=== PATIENT | female | born 1960 | race Caucasian/White ===

== ENCOUNTER 2019-03-07 15:25 | Inpatient (IN) | payer SELFPAY ==
[2019-03-07] MEDS ORDERED: 0.9 % SODIUM CHLORIDE 1,000 ML BAG IV ONE ×2 (15:53→15:54)
[2019-03-07] MEDS ORDERED: ACETAMINOPHEN 325 MG TAB PO ONE (15:55)
--- NOTE | 2019-03-07 15:56 | Emergency Department Record ---
History of Present Illness - General Chief Complaint: Fever Stated Complaint: DIZZY AND FEVER Time Seen by Provider: 03/07/19 15:40 Source: Patient, Family Mode of Arrival: Wheelchair Limitations: No limitations - History of Present Illness Initial Comments: The patient is here due to not feeling well for over 2 weeks. She has had intermittent fevers, weakness, a bad cough, and nausea with mild diarrhea. Over the last 2 days the patient seems to be getting worse with a mild WILLSON and trouble remembering things. The patient denies any AP, dysuria, back or neck pain. She does have a long hx of Hep C but no liver failure. MD Complaint: Fever, Malaise, Weakness Onset/Timin -: Days(s) Maximum Temperature: 102 F Temperature Source: Oral Treatments Prior to Arrival: "Cold medicine" - Related Data Home Medications Medication Instructions Recorded Confirmed Last Taken Naproxen [Naprosyn] 500 mg PO Q8HR 03/07/19 03/07/19 03/07/19 Allergies Allergy/AdvReac Type Severity Reaction Status Date / Time No Known Drug Allergies Allergy Verified 03/07/19 15:31 Travel Screening - Travel/Exposure Within Last 30 Days Have you traveled within the last 30 days?: No - Travel/Exposure Within Last Year Have you traveled outside the [place] in the last year?: No - Additonal Travel Details Have you been exposed to anyone with a communicable illness?: No - Travel Symptoms Symptom Screening: None Review of Systems Constitutional: Reports: Chills, Fever, Malaise Eyes: Denies: Eye discharge ENT: Reports: Congestion Respiratory: Reports: Cough. Denies: Dyspnea Cardiovascular: Denies: Arrhythmia, Chest pain Endocrine: Reports: Fatigue Gastrointestinal: Reports: Diarrhea, Nausea. Denies: Vomiting Genitourinary: Denies: Dysuria Musculoskeletal: Denies: Arthralgia Skin: Denies: Bruising Past Medical History - SOCIAL HISTORY Smoking Status: Light tobacco smoker (<10/day) Alcohol Use: None Drug Use: None - RESPIRATORY Hx Respiratory Disorders: No - CARDIOVASCULAR Hx Cardio Disorders: No - NEURO Hx Neuro Disorders: No - GI Hx GI Disorders: Yes Hx Liver Disease: Yes (Hep c) - Hx Genitourinary Disorders: No - ENDOCRINE Hx Endocrine Disorders: No - MUSCULOSKELETAL Hx Musculoskeletal Disorders: No - PSYCH Hx Psych Problems: No - HEMATOLOGY/ONCOLOGY Hx Hematology/Oncology Disorders: No Family Medical History Any Significant Family History?: No Physical Exam - General General Appearance: Alert, Cooperative, No acute distress - Head Head exam: Atraumatic, Normocephalic, Normal inspection - Eye Eye exam: Normal appearance, PERRL. negative: Conjunctival injection - ENT Throat exam: Normal inspection. negative: Tonsillar erythema, Tonsillar exudate - Neck Neck exam: Normal inspection, Full ROM. negative: Meningismus (The neck is very supple.), Tenderness - Respiratory Respiratory exam: Normal lung sounds bilaterally. negative: Accessory muscle use, Chest wall tenderness, Rales, Respiratory distress, Rhonchi, Stridor - Cardiovascular Cardiovascular Exam: Regular rate, Normal rhythm, Normal heart sounds - GI/Abdominal GI/Abdominal exam: Soft, Normal bowel sounds. negative: Tenderness - Extremities Extremities exam: Normal inspection, Full ROM, Normal capillary refill. negative: Tenderness - Neurological Neurological exam: Alert, Normal gait. negative: Abnormal gait, Altered, Motor sensory deficit, Oriented X3 (The patient is oriented to name, age, and day of the week but thinks it is 2014.) Course Vital Signs 03/07/19 15:34 Temperature 101 F H Pulse Rate 130 H Respiratory 20 Rate Blood Pressure 168/97 Pulse Ox 94 L - Reevaluation(s) Reevaluation #1: The patient is doing a lot better after the IVF and Tylenol. Her temp is improved and her BP is stable with a much lower HR. I did discuss the xrays with the patient and family and did discuss the fact that I feel she will need inpatient treatment and they did agree. I then did discuss the case with Ceci (EMPLOYEE WELFARE MANAGER) and she does agree to accept the admission for Dr. Fried. 03/07/19 17:06 Medical Decision Making - Data Complexity MDM Data: Labs Ordered and/or Reviewed, X-Ray Ordered and/or Reviewed - Lab Data Result diagrams: 03/08/19 06:00 03/08/19 06:00 - Radiology Data Radiology results: Report reviewed (CXR: EMILIE infiltrate. Head CT: Neg for any acute changes.) Disposition Disposition: Admit Clinical Impression: Pneumonia Qualifiers: Pneumonia type: due to unspecified organism Laterality: left Lung location: upper lobe of lung Qualified Code(s): J18.1 - Lobar pneumonia, unspecified organism Disposition: Still a Patient at [facility] Decision to Admit: Admit from ER Decision to Admit Date: 03/07/19 Decision to Admit Time: 17:35 Accepting Physician: Corky Time Discussed w/Accepting Physician: 17:35 Condition: (2) Stable Time of Disposition: 17:35 Quality - Quality Measures Quality Measures: N/A - Blood Pressure Screening View Details: Yes Does Patient Have Any of the Following: No Blood Pressure Classification: Hypertensive Reading Systolic Measurement: 168 Diastolic Measurement: 97 Screening for High Blood Pressure: < First Hypertensive BP, F/U Documented > [[id number]] First Hypertensive Follow-up Interventions: Referral to alternative/primary care provider.
[2019-03-07 16:03] LABS: BASO % 0.1 % (0-6); HEMATOCRIT 42.3 % (35.0-47.0); HEMOGLOBIN 14.5 gm/dl (11.6-16.0); LYMPH % 9.6 % (16-45); MEAN CELL VOLUME 96.4 fl (81-97); MEAN CORPUSCULAR HGB CONC 34.3 g/dl (32-36); MEAN PLATELET VOLUME 12.6 fl (7.4-10.4); MONO % 4.9 % (0-9); PLATELET COUNT 99 K/uL (130-400); RED BLOOD COUNT 4.39 M/uL (3.80-5.40); RED CELL DISTRIBUTION WIDTH 12.3 % (11.5-14.5); WHITE BLOOD COUNT W/O DIFF 8.1 K/uL (4.2-12.2)
[2019-03-07 16:18] LABS: URINE APPEARANCE CLEAR; URINE BILIRUBIN MODERATE (NEGATIVE); URINE BLOOD MODERATE (NEGATIVE); URINE COLOR YELLOW; URINE GLUCOSE (UA) NEGATIVE (NEGATIVE); URINE KETONE NEGATIVE (NEGATIVE); URINE LEUKOCYTE ESTERASE TRACE (NEGATIVE); URINE NITRITE NEGATIVE (NEGATIVE)
[2019-03-07 16:24] LABS: INR 1.1; PARTIAL THROMBOPLASTIN TIME 30.5 SECONDS (24.5-39.1); PROTHROMBIN TIME (PATIENT) 11.3 SECONDS (9.5-12.1)
[2019-03-07 16:32] LABS: BLOOD UREA NITROGEN 33 mg/dL (8-23); CREATININE 0.8 mg/dL (0.5-0.9); EST GLOMERULAR FILTRATION RATE > 60 mL/min; TOTAL PROTEIN 7.7 g/dL (6.6-8.7)
[2019-03-07 16:32] LABS: URINE BACTERIA 3+; URINE RBC 0 - 2 (NONE SEEN)
[2019-03-07 16:34] LABS: GLUCOSE,RANDOM 189 mg/dL (74-109)
[2019-03-07] MEDS ORDERED: CEFTRIAXONE 1GM/50ML BAG 1 GM/50 ML BAG IVPB ONE (16:34)
[2019-03-07 16:37] LABS: ALBUMIN 3.2 g/dL (4.0-5.0); ALKALINE PHOSPHATASE 84 U/L (35-104); ALT/SGPT 34 U/L (<33); AST/SGOT 70 U/L (10.0-35.0); BILIRUBIN,DIRECT 0.9 mg/dL (0-0.3); C-REACTIVE PROTEIN 27.72 mg/dL (<0.5)
[2019-03-07 16:40] LABS: PLATELET ESTIMATE DECREASED (NORMAL)
[2019-03-07] MEDS ORDERED: AZITHROMYCIN 500 MG in 0.9 % SODIUM CHLORIDE 250ML 250 ML IVPB ONE (16:58)
[2019-03-07] MEDS ORDERED: ACETAMINOPHEN 325 MG TAB PO PRN (19:56)
[2019-03-07] MEDS: CEFTRIAXONE SODIUM 1 GM in 0.9 % SODIUM CHLORIDE 100ML 100 ML IVPB SCH (20:00)
[2019-03-07] MEDS: 0.9 % SODIUM CHLORIDE 1000ML 1,000 ML IV ONE (20:24)
[2019-03-07] MEDS: NAPROXEN 250 MG TABLET PO SCH (20:56)
[2019-03-07] MEDS: IPRATROPIUM/ALBUTEROL (0.5MG/3MG) NEB INH SCH (20:59)
[2019-03-08] MEDS: IPRATROPIUM/ALBUTEROL (0.5MG/3MG) NEB INH SCH ×3 (01:32→10:07)
[2019-03-08] MEDS: NAPROXEN 250 MG TABLET PO SCH ×2 (04:42→12:02)
[2019-03-08] MEDS: 0.9 % SODIUM CHLORIDE 1000ML 1,000 ML IV ONE (04:44)
[2019-03-08 06:12] LABS: ABSOLUTE NEUTROPHIL COUNT 3.45; BASO % 0.2 % (0-6); HEMATOCRIT 35.7 % (35.0-47.0); HEMOGLOBIN 12.1 gm/dl (11.6-16.0); LYMPH % 8.6 % (16-45); MEAN CELL VOLUME 98.1 fl (81-97); MEAN CORPUSCULAR HEMOGLOBIN 33.2 pg (27-33); MEAN CORPUSCULAR HGB CONC 33.9 g/dl (32-36); MEAN PLATELET VOLUME 12.3 fl (7.4-10.4); MONO % 5.9 % (0-9); PLATELET COUNT 73 K/uL (130-400); RED BLOOD COUNT 3.64 M/uL (3.80-5.40); RED CELL DISTRIBUTION WIDTH 12.6 % (11.5-14.5); WHITE BLOOD COUNT W/O DIFF 4.1 K/uL (4.2-12.2)
[2019-03-08 06:41] LABS: PLATELET ESTIMATE DECREASED (NORMAL)
[2019-03-08 06:55] LABS: ALB/GLOB RATIO 0.6 (1.1-1.8); ALBUMIN 2.4 g/dL (4.0-5.0); ALKALINE PHOSPHATASE 56 U/L (35-104); ALT/SGPT 35 U/L (<33); AST/SGOT 77 U/L (10.0-35.0); BLOOD UREA NITROGEN 34 mg/dL (8-23); CREATININE 0.6 mg/dL (0.5-0.9); EST GLOMERULAR FILTRATION RATE > 60 mL/min; GLUCOSE,RANDOM 173 mg/dL (74-109); TOTAL PROTEIN 6.1 g/dL (6.6-8.7)
[2019-03-08] MEDS: CEFTRIAXONE SODIUM 1 GM in 0.9 % SODIUM CHLORIDE 100ML 100 ML IVPB SCH ×2 (07:48→20:53)
[2019-03-08] MEDS: POTASSIUM CHLORIDE 20 MEQ TABLET PO SCH ×2 (10:15→22:26)
[2019-03-08] MEDS: CALCIUM CARBONATE 500 MG TAB.CHEW PO SCH ×2 (10:15→22:26)
[2019-03-08] MEDS ORDERED: MAGNESIUM SULFATE 16 MEQ in 0.9 % SODIUM CHLORIDE 100ML 100 ML IV ONE (11:14)
[2019-03-08] MEDS ORDERED: METOPROLOL TART 5 MG/5 ML VIAL IV ONE (11:37)
[2019-03-08] MEDS ORDERED: METOPROLOL TART 5 MG/5 ML VIAL IV PRN (12:02)
[2019-03-08] MEDS: METOPROLOL TART 25 MG TABLET PO SCH ×2 (12:06→22:27)
--- NOTE | 2019-03-08 12:20 | History & Physical ---
History of Present Illness - Date of Service Date of Service for History & Physical: 03/08/19 - History of Present Illness Admitting Diagnosis: 1. Acute EMILIE Pneumonia. History of Present Illness: Aleksandra Brantley is a 58 y.o. F who presented to the [facility] ED on 03/07/19 with c/o fevers, weakness, cough, nausea and mild diarrhea x 2 weeks that had worsened over last 2 days. Had also developed a mild headache and some confusion. Denied having back or neck pain or any urinary symptoms. Reported that she last saw her PCP in April 2018. Has hx of Hep C for which she was diagnosed in 1998. Stated that she got it from a blood transfusion during a in 1974. Did undergo treatment x 1 year back in 1998. Doesn't have a GI doctor as she moved to the area from [place] to live with her son fairly recently. Does not have any health insurance at this time. Doesn't know if she qualifies for Medicaid or not because she has a home, that is for sale, so was told she probably wouldn't qualify because of this asset. PMHx: Hep C, HTN, smoker PCP: Dr. Verma ED Course -Vitals: T 101, HR 130, BP 168/97, RR 20, SpO2 94% on RA -CXR: EMILIE Infiltrate -Head CT: No acute changes -Labs: WBC 8.1, platelets 99, Na 126, K+ 3.6, AG 18, Creat 0.8, Lactic 3.0, Ca 8.7, CRP 27, procalcitonin 1.6 -U/A: Trace Leuks, no Nitrites 03/08/19 1140 Vitals: T 97.6, HR 63, BP 99/59, RR 18, SpO2 99% on RA Pt was sitting up in bed in mild distress. Was c/o Chest pressure and some PRASAD. HR 150s to 170s on Telemetry. Had a Duoneb approximately 1 hour prior and had then gotten up to use the restroom when HR elevated and chest pressure started. Reported extreme coughing when up to the bathroom, after the Duoneb and then chest pressure started. Pt was administered IV Metoprolol 2.5mg x 2 doses and then given Metoprolol 25mg PO. 20 minutes later, EKG was ordered when HR did not decrease. When EKG machine was brought into room, pt converted to a NSR with HR in 80s. EKG = NSR. Outside of this episode, pt denied having any pain or fever however she has been receiving Naproxen ATC. RN did report that pt was diaphoretic this a.m. Travel Screening - Travel/Exposure Within Last 30 Days Have you traveled within the last 30 days?: No - Travel/Exposure Within Last Year Have you traveled outside the [place] in the last year?: No - Additonal Travel Details Have you been exposed to anyone with a communicable illness?: No - Travel Symptoms Symptom Screening: None Review of Systems Reviewed: No additional complaints except as noted below Constitutional: Reports: Chills, Malaise, Weakness Eyes: Denies: Eye discharge ENT: Reports: Congestion Respiratory: Reports: Cough. Denies: Dyspnea Cardiovascular: Reports: Chest pain (pressure ). Denies: Arrhythmia Endocrine: Reports: Fatigue Gastrointestinal: Reports: Diarrhea. Denies: Vomiting Genitourinary: Denies: Dysuria Musculoskeletal: Denies: Arthralgia Skin: Denies: Bruising Neurological: Denies: Confusion Past Medical History - SOCIAL HISTORY Smoking Status: Light tobacco smoker (<10/day) Alcohol Use: None Drug Use: None - RESPIRATORY Hx Respiratory Disorders: No - CARDIOVASCULAR Hx Cardio Disorders: No - NEURO Hx Neuro Disorders: No - GI Hx GI Disorders: Yes Hx Liver Disease: Yes (Hep c) - Hx Genitourinary Disorders: No - ENDOCRINE Hx Endocrine Disorders: No - MUSCULOSKELETAL Hx Musculoskeletal Disorders: No - PSYCH Hx Psych Problems: No - HEMATOLOGY/ONCOLOGY Hx Hematology/Oncology Disorders: No Family Medical History Any Significant Family History?: No H&P Meds/Allergies - Allergies Allergies: Allergies Allergy/AdvReac Type Severity Reaction Status Date / Time No Known Drug Allergies Allergy Verified 03/07/19 15:31 - Home Medications Home Medications Medication Instructions Recorded Confirmed Last Taken Naproxen [Naprosyn] 500 mg PO Q8HR 03/07/19 03/07/19 03/07/19 Lisinopril/Hydrochlorothiazide 1 tab PO DAILY 03/08/19 03/08/19 Unknown [Lisinopril-Hctz 10-12.5 mg Tab] Metoprolol Succinate [Toprol Xl] 1 tab PO DAILY 03/08/19 03/08/19 Unknown Metoprolol/Hydrochlorothiazide 03/08/19 Unknown [Metoprolol-Hctz 100-50 mg Tab] - Active Medications Active Medications: Current Medications Calcium Carbonate/Glycine (Tums) 500 mg PO BID [facility] Last Admin: 03/08/19 10:15 Dose: 500 mg Documented by: Ceftriaxone Sodium 1 gm/ (Sodium Chloride) 100 mls @ 100 mls/hr IVPB Q12H [facility] Stop: 03/12/19 19:57 Last Infusion: 03/08/19 08:49 Dose: Infused Documented by: Azithromycin 500 mg/ Sodium (Chloride) 250 mls @ 250 mls/hr IVPB Q24H [facility] Stop: 03/13/19 17:46 Metoprolol Tartrate (Lopressor) 25 mg PO BID [facility] Last Admin: 03/08/19 12:06 Dose: 25 mg Documented by: Metoprolol Tartrate (Lopressor) 2.5 mg IV Q5MIN PRN PRN Reason: Heart Rate greater than 150 Naproxen (Naprosyn) 500 mg PO Q12H PRN PRN Reason: PAIN - MILD(1-4)/FEVER Potassium Chloride (Klor-Con) 40 meq PO BID [facility] Last Admin: 03/08/19 10:15 Dose: 40 meq Documented by: Physical Exam - Vital Signs Vital Signs: Vital Signs - Last 24 Hrs Temp Pulse Pulse Resp BP BP Pulse Ox 03/08/19 11:41 97.9 F 76 20 109/79 96 03/08/19 10:08 63 18 99 03/08/19 08:00 97.6 F 81 17 99/59 96 03/08/19 06:07 75 20 95 03/08/19 02:20 97.4 F L 77 16 117/65 99 03/07/19 21:30 98.3 F 03/07/19 21:00 112 H 20 03/07/19 20:59 112 H 20 03/07/19 19:55 98.7 F 111 H 18 132/77 97 03/07/19 19:19 98.3 F 99 H 20 122/76 97 03/07/19 18:33 98.5 F 97 H 18 109/68 97 03/07/19 17:04 99.2 F 103 H 20 123/77 96 03/07/19 15:34 101 F H 130 H 20 168/97 94 L - General General Appearance: Alert, Oriented x3, Cooperative, Mild distress Limitations: No limitations - Head Head exam: Atraumatic, Normocephalic, Normal inspection - Eye Eye exam: Normal appearance, PERRL. negative: Conjunctival injection - ENT Throat exam: Normal inspection. negative: Tonsillar erythema, Tonsillar exudate - Neck Neck exam: Normal inspection, Full ROM. negative: Meningismus (The neck is very supple.), Tenderness - Respiratory Respiratory exam: Normal lung sounds bilaterally. negative: Accessory muscle use, Chest wall tenderness, Rales, Respiratory distress, Rhonchi, Stridor - Cardiovascular Cardiovascular Exam: Tachycardia - GI/Abdominal GI/Abdominal exam: Soft, Normal bowel sounds. negative: Tenderness - Extremities Extremities exam: Normal inspection, Full ROM, Normal capillary refill. negative: Pedal edema, Tenderness - Neurological Neurological exam: Alert, CN II-XII intact. negative: Abnormal gait, Altered, Motor sensory deficit - Psychiatric Psychiatric exam: Normal mood - Skin Skin exam: Dry, Intact Results - Labs Result Diagrams: 03/08/19 06:00 03/08/19 06:00 Labs Last 24 Hours: Laboratory Results - last 24 hr 03/07/19 03/07/19 03/07/19 15:45 15:45 15:45 WBC 8.1 RBC 4.39 Hgb 14.5 Hct 42.3 MCV 96.4 MCH 33.0 MCHC 34.3 RDW 12.3 Plt Count 99 L MPV 12.6 H Neutrophils % 78.0 Band Neutrophils % 4.0 Lymphocytes % 9.6 L Monocytes % 4.9 Eosinophils % 0.0 Basophils % 0.1 Absolute Neutrophils 6.90 Lymphocytes 8.0 L Monocytes 10.0 H Basophils 0.0 Metamyelocytes Platelet Estimate Decreased RBC Morphology Eosinophil Count 0.0 PT 11.3 INR 1.1 APTT 30.5 Sodium 126 L Potassium 3.6 Chloride 89 L Carbon Dioxide 19.0 L Anion Gap 18.0 H BUN 33 H Creatinine 0.8 Estimated GFR > 60 Random Glucose 189 H Lactic Acid 3.0 H Calcium 8.7 L Magnesium Total Bilirubin 1.40 H Direct Bilirubin 0.9 H AST 70 H ALT 34 H Alkaline Phosphatase 84 Ammonia C-Reactive Protein 27.72 H Total Protein 7.7 Albumin 3.2 L Globulin Albumin/Globulin Ratio Procalcitonin 1.61 Urine Color Urine Appearance Urine pH Ur Specific [place] Urine Protein Urine Glucose (UA) Urine Ketones Urine Blood Urine Nitrite Urine Bilirubin Urine Urobilinogen Ur Leukocyte Esterase Urine RBC Urine WBC Ur Epithelial Cells Urine Bacteria 03/07/19 03/07/19 03/08/19 16:00 16:00 06:00 WBC 4.1 L RBC 3.64 L Hgb 12.1 Hct 35.7 MCV 98.1 H MCH 33.2 H MCHC 33.9 RDW 12.6 Plt Count 73 L MPV 12.3 H Neutrophils % 74.0 Band Neutrophils % 12.0 H Lymphocytes % 8.6 L Monocytes % 5.9 Eosinophils % 0.0 Basophils % 0.2 Absolute Neutrophils 3.45 Lymphocytes 8.0 L Monocytes 5.0 Basophils Metamyelocytes 1.0 Platelet Estimate Decreased RBC Morphology Normal Eosinophil Count PT INR APTT Sodium Potassium Chloride Carbon Dioxide Anion Gap BUN Creatinine Estimated GFR Random Glucose Lactic Acid Calcium Magnesium Total Bilirubin Direct Bilirubin AST ALT Alkaline Phosphatase Ammonia 32 C-Reactive Protein Total Protein Albumin Globulin Albumin/Globulin Ratio Procalcitonin Urine Color Yellow Urine Appearance Clear Urine pH 6.0 Ur Specific [place] 1.015 Urine Protein 100 mg/dl H Urine Glucose (UA) Negative Urine Ketones Negative Urine Blood Moderate Urine Nitrite Negative Urine Bilirubin Moderate H Urine Urobilinogen 4.0 H Ur Leukocyte Esterase Trace H Urine RBC 0 - 2 Urine WBC 3 - 5 Ur Epithelial Cells 10 - 15 Urine Bacteria 3+ 03/08/19 03/08/19 06:00 06:00 WBC RBC Hgb Hct MCV MCH MCHC RDW Plt Count MPV Neutrophils % Band Neutrophils % Lymphocytes % Monocytes % Eosinophils % Basophils % Absolute Neutrophils Lymphocytes Monocytes Basophils Metamyelocytes Platelet Estimate RBC Morphology Eosinophil Count PT INR APTT Sodium 131 L Potassium 3.0 L Chloride 98 Carbon Dioxide 21.0 L Anion Gap 12.0 BUN 34 H Creatinine 0.6 Estimated GFR > 60 Random Glucose 173 H Lactic Acid Calcium 8.0 L Magnesium 1.6 Total Bilirubin 1.10 H Direct Bilirubin AST 77 H ALT 35 H Alkaline Phosphatase 56 Ammonia C-Reactive Protein Total Protein 6.1 L Albumin 2.4 L Globulin 3.7 Albumin/Globulin Ratio 0.6 L Procalcitonin Urine Color Urine Appearance Urine pH Ur Specific [place] Urine Protein Urine Glucose (UA) Urine Ketones Urine Blood Urine Nitrite Urine Bilirubin Urine Urobilinogen Ur Leukocyte Esterase Urine RBC Urine WBC Ur Epithelial Cells Urine Bacteria VTE H&P Assessment - Risk for VTE Risk for VTE: Yes Risk Level: Moderate Risk Assessment Date: 03/08/19 Risk Assessment Time: 11:40 VTE Orders Placed or Will Be Placed: Yes Plan - Inpatient Certification Inpatient Certification: Admit to inpatient care: Based on my medical assessment, after consideration of patient's risk factors (age, co-morbidities and patient presenting symptoms and acuity), I expect that this patient will remain in the hospital greater than or equal to two midnights and that the services needed warrant inpatient care because: Patient Risk Factors: [Comorbities, acute needs] Estimated length of stay: [48-72 hours] The patient may reasonably be expected to be discharged or transferred to a hospital within 96 hours after admission to [facility]. Services needed: [IV antibiotics, electrolyte management, IV Fluids, Telemetry] Post hospital care (if known): [] I certify that my determination is in accordance with my understanding of Medicare requirements for reasonable and necessary inpatient services. 03/08/19 15:00 - Detailed Diagnosis and Plan (1) Pneumonia Current Visit: Yes Status: Acute Qualifiers: Pneumonia type: due to unspecified organism Laterality: left Lung location: upper lobe of lung Qualified Code(s): J18.1 - Lobar pneumonia, unspecified organism Base Code: J18.9 - PNEUMONIA, UNSPECIFIED ORGANISM Comment: 03/08/19 -Intermittent fever, weakness, cough x 2 weeks -CXR: EMILIE infiltrate -CRP 27, procalcitonin 1.6, WBC 8.1 -Zithromax 500mg IV q. day -Rocephin 1gm IV q. 12 hours (2) Electrolyte imbalance Current Visit: Yes Status: Acute Base Code: E87.8 - OTH DISORDERS OF ELECTROLYTE AND FLUID BALANCE, NEC Comment: 03/08/19 -Na 126 --> 131, holding home med Lisinopril/Hctz. IV NS @ 100ml/hr -K+ 3.6 --> 3.0, start Klor-Con 40meq PO BID -Ca 8.7 --> 8.0, start Calcium Carbonate 500mg PO BID -Mg 1.6, Magnesium 16meq IV x 1 -Recheck CMP and Magnesium tomorrow (3) History of hypertension Current Visit: Yes Status: Acute Base Code: Z86.79 - PERSONAL HISTORY OF OTHER DISEASES OF THE CIRCULATORY SYSTEM Comment: 03/08/19 -Home meds: Lisinopril/Hctz and Metoprolol -SBP 90s-100s, DBP 50s-90s -Hold Lisinopril/Hctz -Will consider discharge with Lisinopril only d/t Hctz possibly attributing to hyponatremia (4) History of hepatitis C Current Visit: Yes Status: Acute Base Code: Z86.19 - PERSONAL HISTORY OF OTHER INFECTIOUS AND PARASITIC DISEASES Comment: 03/08/19 -Contracted from a blood transfusion in 1974 -Hx of Hep C treatment in 1998 -No GI d/t recent move to area and no insurance -AST/ALT: 77/35 -D/C Tylenol order from ED d/t liver toxicity (5) Blood glucose elevated Current Visit: Yes Status: Acute Base Code: R73.9 - HYPERGLYCEMIA, UNSPECIFIED Comment: 03/08/19 -BGL 189 -->173 -Ordered A1C for tomorrow (6) Irregular heart rate Current Visit: Yes Status: Acute Base Code: I49.9 - CARDIAC ARRHYTHMIA, UNSPECIFIED Comment: 03/08/19 -HR 130s in ED -60s-80s and NSR on Telemetry -Episode of HR 150s-170s when getting up to bathroom approximately 1 hour after Duoneb, had extreme coughing -Had c/o chest pressure, possibly Afib however EKG not obtained during episode -IV Metorprolol 2.5mg x 2 and PO Metropolol 25mg given -HR decreased to 70s-80s and NSR on EKG (7) Does not have health insurance Current Visit: Yes Status: Acute Base Code: Z59.8 - OTHER PROBLEMS RELATED TO HOUSING AND ECONOMIC CIRCUMSTANCES Comment: 03/08/19 -Case Management consult ordered (8) Full code status Current Visit: Yes Status: Acute Base Code: Z78.9 - OTHER SPECIFIED HEALTH STATUS Comment: 03/08/19 -Full code (9) DVT prophylaxis Current Visit: Yes Status: Acute Base Code: Z29.9 - ENCOUNTER FOR PROPHYLACTIC MEASURES, UNSPECIFIED Comment: 03/08/19 -Low to moderate risk -Platelets 99 --> 73, likely r/t chronic HCV -Lovenox contraindicated per [employer] d/t low platelets -Nursing to encourage ambulation -SCDs ordered while in bed
[2019-03-08] MEDS ORDERED: PHENOL SORE THROAT SPRAY 177 ML BTL MT PRN (15:04)
[2019-03-08] MEDS: GUAIFENESIN 600 MG TABCR PO SCH ×2 (15:53→22:26)
[2019-03-08] MEDS: AZITHROMYCIN 500 MG in 0.9 % SODIUM CHLORIDE 250ML 250 ML IVPB SCH (18:05)
[2019-03-08] MEDS: 0.9 % SODIUM CHLORIDE 1000ML 1,000 ML IV SCH (18:13)
[2019-03-08] MEDS: NAPROXEN 250 MG TABLET PO PRN (19:37)
[2019-03-08] MEDS ORDERED: PROMETHAZINE W/CODEINE 10ML UD PO ONE (20:34)
--- NOTE | 2019-03-08 21:04 | RADIOLOGY REPORT ---
EXAM: CHEST 2 VIEWS HISTORY: FEVER AND DIFFICULTY SPEAKING. NOT FEELING WELL FOR 2.5 WEEKS. TECHNIQUE: PA and lateral views. COMPARISON: None. FINDINGS: There is extensive infiltrate in the left upper lobe with air bronchograms, presumably representing fairly dense pneumonitis. Follow-up films are suggested after suitable therapy to demonstrate clearing. Elsewhere, the lungs appear essentially clear. No definite pleural effusion or pneumothorax evident. Thoracic dextroscoliosis with hypertrophic spurring in the spine. IMPRESSION: 1. DENSE INFILTRATE LEFT UPPER LOBE CONSISTENT WITH PNEUMONITIS. FOLLOW-UP FILMS SUGGESTED TO DEMONSTRATE CLEARING. 2. SCOLIOSIS WITH DEGENERATIVE CHANGE IN THE SPINE. JOB NUMBER: [id number] [facility]
--- NOTE | 2019-03-08 21:07 | CT SCAN REPORT ---
EXAM: CT SCAN HEAD WO CONTRAST HISTORY: CONFUSION. TECHNIQUE: Axial CT scan of the head performed without IV contrast. COMPARISON: None. FINDINGS: No definite acute intracranial hemorrhage identified. No focal mass effect or midline shift evident. No definite acute infarct or intracranial mass lesion is seen. No depressed calvarial fracture evident. IMPRESSION: EMERGENCY NONCONTRAST HEAD CT APPEARS ESSENTIALLY NEGATIVE WITH NO DEFINITE ACUTE INTRACRANIAL HEMORRHAGE OR FOCAL MASS EFFECT IDENTIFIED. JOB NUMBER: [id number] [facility]
[2019-03-09] MEDS: 0.9 % SODIUM CHLORIDE 1000ML 1,000 ML IV SCH ×2 (04:50→16:54)
[2019-03-09] MEDS: CEFTRIAXONE SODIUM 1 GM in 0.9 % SODIUM CHLORIDE 100ML 100 ML IVPB SCH ×2 (07:52→20:12)
[2019-03-09 07:55] LABS: ABSOLUTE NEUTROPHIL COUNT 3.89; HEMATOCRIT 37.6 % (35.0-47.0); HEMOGLOBIN 12.7 gm/dl (11.6-16.0); MEAN CELL VOLUME 97.9 fl (81-97); MEAN CORPUSCULAR HEMOGLOBIN 33.1 pg (27-33); MEAN CORPUSCULAR HGB CONC 33.8 g/dl (32-36); MEAN PLATELET VOLUME 12.9 fl (7.4-10.4); PLATELET COUNT 81 K/uL (130-400); RED BLOOD COUNT 3.84 M/uL (3.80-5.40); WHITE BLOOD COUNT W/O DIFF 4.5 K/uL (4.2-12.2)
[2019-03-09 08:13] LABS: PLATELET ESTIMATE DECREASED (NORMAL)
[2019-03-09 08:15] LABS: ALB/GLOB RATIO 0.5 (1.1-1.8); ALBUMIN 2.1 g/dL (4.0-5.0); ALKALINE PHOSPHATASE 80 U/L (35-104); ALT/SGPT 48 U/L (<33); AST/SGOT 117 U/L (10.0-35.0); BLOOD UREA NITROGEN 30 mg/dL (8-23); CREATININE 0.5 mg/dL (0.5-0.9); EST GLOMERULAR FILTRATION RATE > 60 mL/min; GLUCOSE,RANDOM 137 mg/dL (74-109)
[2019-03-09 08:16] LABS: LACTIC ACID 1.5 mmol/L (0.5-2.2)
[2019-03-09] MEDS: POTASSIUM CHLORIDE 20 MEQ TABLET PO SCH (09:41)
[2019-03-09] MEDS: METOPROLOL TART 25 MG TABLET PO SCH ×2 (09:41→21:15)
[2019-03-09] MEDS: GUAIFENESIN 600 MG TABCR PO SCH ×2 (09:41→21:15)
[2019-03-09] MEDS: CALCIUM CARBONATE 500 MG TAB.CHEW PO SCH ×2 (09:41→21:15)
[2019-03-09] MEDS ORDERED: METHYLPREDNISOLONE SOD 40MG/VIAL IVP ONE (11:29)
[2019-03-09] MEDS ORDERED: PROMETHAZINE W/CODEINE 10ML UD PO PRN (11:31)
--- NOTE | 2019-03-09 11:38 | Physician Progress Note ---
Subjective - Date Date of Physician Progress Note: 03/09/19 - Subjective Subjective Comment: 03/09/19 1100 Pt reported that mucous is starting to break up and she is having increased coughing and wheezing. Doesn't want breathing treatments d/t worry that her heart rate will get fast again. Reported that her body is aching all over. Quality: Aching Associated symptoms: Cough, Malaise Objective - Vital Signs Vital Signs: Vital Signs - Last 24 Hrs Temp Pulse Resp BP Pulse Ox 03/09/19 08:20 80 20 03/09/19 08:00 97.7 F 76 17 112/64 96 03/08/19 21:15 98.7 F 90 16 112/55 94 L 03/08/19 21:00 90 03/08/19 17:00 98.3 F 86 16 113/69 96 03/08/19 15:05 84 16 119/64 97 03/08/19 13:35 73 92/65 03/08/19 12:35 79 17 102/63 96 03/08/19 11:50 136 H 12 110/70 97 03/08/19 11:41 97.9 F 76 20 109/79 96 - General General Appearance: Alert, Oriented x3, Cooperative, Mild distress Limitations: No limitations - Head Head exam: Atraumatic, Normocephalic, Normal inspection - Eye Eye exam: Normal appearance, PERRL. negative: Conjunctival injection - ENT Throat exam: Normal inspection. negative: Tonsillar erythema, Tonsillar exudate - Neck Neck exam: Normal inspection, Full ROM. negative: Meningismus (The neck is very supple.), Tenderness - Respiratory Respiratory exam: Accessory muscle use, Wheezes. negative: Chest wall tenderness, Rales, Respiratory distress, Rhonchi, Stridor - Cardiovascular Cardiovascular Exam: Regular rate, Normal rhythm, Normal heart sounds Peripheral Pulses: 3+: Dorsalis Pedis (R), Dorsalis Pedis (L) - GI/Abdominal GI/Abdominal exam: Soft, Normal bowel sounds. negative: Tenderness - Extremities Extremities exam: Normal inspection, Full ROM, Normal capillary refill. negative: Pedal edema, Tenderness - Neurological Neurological exam: Alert, CN II-XII intact. negative: Abnormal gait, Altered, Motor sensory deficit - Psychiatric Psychiatric exam: Normal mood - Skin Skin exam: Dry, Intact Assessment and Plan - Assessment and Plan (1) Pneumonia Current Visit: Yes Status: Acute Qualifiers: Pneumonia type: due to unspecified organism Laterality: left Lung location: upper lobe of lung Qualified Code(s): J18.1 - Lobar pneumonia, unspecified organism Base Code: J18.9 - PNEUMONIA, UNSPECIFIED ORGANISM Comment: 03/08/19 -Intermittent fever, weakness, cough x 2 weeks -CXR: EMILIE infiltrate -WBC 4.5, Neutrophils 82 -Zithromax 500mg IV q. day -Rocephin 1gm IV q. 12 hours -IV Solumedrol 40mg x 1, Prednisone 40mg PO daily starting tomorrow -Phenergan with Codeine PO @ HS to allow for rest -Mucinex 600mg PO BID (2) Electrolyte imbalance Current Visit: Yes Status: Acute Base Code: E87.8 - OTH DISORDERS OF ELECTROLYTE AND FLUID BALANCE, NEC Comment: 03/08/19 -Na 126 --> 131 --> 138, holding home med Lisinopril/Hctz. IV NS @ 100ml/hr -K+ 3.6 --> 3.0 --> 4.1, change Klor-Con to 40meq daily -Ca 8.7 --> 8.0 --> 8.3, continue Calcium Carbonate 500mg PO BID -Mg 1.6 --> 2.1, start Magnesium 400mg daily -Recheck CMP tomorrow (3) History of hypertension Current Visit: Yes Status: Acute Base Code: Z86.79 - PERSONAL HISTORY OF OTHER DISEASES OF THE CIRCULATORY SYSTEM Comment: 03/09/19 -Home meds: Lisinopril/Hctz and Metoprolol -SBP 110s-140s -Restart Lisinopril 20mg daily tomorrow (removing Hctz) -Continue Metoprolol 25mg PO BID (4) History of hepatitis C Current Visit: Yes Status: Acute Base Code: Z86.19 - PERSONAL HISTORY OF OTHER INFECTIOUS AND PARASITIC DISEASES Comment: 03/09/19 -Contracted from a blood transfusion in 1974 -Hx of Hep C treatment in 1998 -No GI d/t recent move to area and no insurance -AST/ALT elevated from 70/34 to 117/48 -D/C Tylenol order from ED d/t liver toxicity -Recheck CMP in the morning (5) Blood glucose elevated Current Visit: Yes Status: Acute Base Code: R73.9 - HYPERGLYCEMIA, UNSPECIFIED Comment: 03/09/19 -A1C 6.5 -Discussed lifestyle modifications with pt and to f/u with PCP (6) Irregular heart rate Current Visit: Yes Status: Acute Base Code: I49.9 - CARDIAC ARRHYTHMIA, UNSPECIFIED Comment: 03/09/19 -HR 130s in ED -60s-80s and NSR on Telemetry -Episode of HR 150s-170s when getting up to bathroom approximately 1 hour after Duoneb, had extreme coughing on 03/08/19 -No further episodes -Continue Metoprolol 25mg PO BID (7) Does not have health insurance Current Visit: Yes Status: Acute Base Code: Z59.8 - OTHER PROBLEMS RELATED TO HOUSING AND ECONOMIC CIRCUMSTANCES Comment: 03/09/19 -Case Management consult ordered (8) Full code status Current Visit: Yes Status: Acute Base Code: Z78.9 - OTHER SPECIFIED HEALTH STATUS Comment: 03/09/19 -Full code (9) DVT prophylaxis Current Visit: Yes Status: Acute Base Code: Z29.9 - ENCOUNTER FOR PROPHYLACTIC MEASURES, UNSPECIFIED Comment: 03/09/19 -Low to moderate risk -Platelets 99 --> 73 --> 81, likely r/t chronic HCV -Lovenox contraindicated per UpToDate d/t low platelets -Nursing to encourage ambulation -SCDs ordered while in bed Results - Labs Result Diagrams: 03/09/19 07:50 03/09/19 07:50 Labs Last 24 Hours: Laboratory Results - last 24 hr 03/09/19 03/09/19 03/09/19 07:50 07:50 07:50 WBC 4.5 RBC 3.84 Hgb 12.7 Hct 37.6 MCV 97.9 H MCH 33.1 H MCHC 33.8 RDW 13.0 Plt Count 81 L MPV 12.9 H Neutrophils % 82.0 H Band Neutrophils % 11.0 H Eosinophils % Not Reportable Basophils % Not Reportable Absolute Neutrophils 3.89 Lymphocytes 5.0 L Monocytes 2.0 Platelet Estimate Decreased RBC Morphology Normal Sodium 138 Potassium 4.1 Chloride 104 Carbon Dioxide 21.0 L Anion Gap 13.0 BUN 30 H Creatinine 0.5 Estimated GFR > 60 Random Glucose 137 H Hemoglobin A1c 6.50 H Lactic Acid 1.5 Calcium 8.3 L Magnesium 2.1 Total Bilirubin 1.30 H AST 117 H ALT 48 H Alkaline Phosphatase 80 Total Protein 6.0 L Albumin 2.1 L Globulin 3.9 Albumin/Globulin Ratio 0.5 L DVT/PE Assessment - Risk for VTE Risk for VTE: No Risk Level: Moderate Risk Assessment Date: 03/08/19 Risk Assessment Time: 11:40 VTE Orders Placed or Will Be Placed: Yes - Active Medicaitons Current Medications: Current Medications Calcium Carbonate/Glycine (Tums) 500 mg PO BID [facility] Last Admin: 03/09/19 09:41 Dose: 500 mg Documented by: Guaifenesin (Mucinex) 600 mg PO BID [facility] Last Admin: 03/09/19 09:41 Dose: 600 mg Documented by: Ceftriaxone Sodium 1 gm/ (Sodium Chloride) 100 mls @ 100 mls/hr IVPB Q12H [facility] Stop: 03/12/19 19:57 Last Infusion: 03/09/19 08:55 Dose: Infused Documented by: Azithromycin 500 mg/ Sodium (Chloride) 250 mls @ 250 mls/hr IVPB Q24H [facility] Stop: 03/13/19 17:46 Last Infusion: 03/08/19 19:10 Dose: Infused Documented by: Sodium Chloride () 1,000 mls @ 100 mls/hr IV .Q10H [facility] Last Admin: 03/09/19 04:50 Dose: 100 mls/hr Documented by: Magnesium Oxide (Mag Ox) 400 mg PO DAILY [facility] Methylprednisolone Sodium Succinate (Solu-Medrol) 40 mg IVP DAILY ONE Stop: 03/09/19 11:30 Metoprolol Tartrate (Lopressor) 25 mg PO BID [facility] Last Admin: 03/09/19 09:41 Dose: 25 mg Documented by: Metoprolol Tartrate (Lopressor) 2.5 mg IV Q5MIN PRN PRN Reason: Heart Rate greater than 150 Naproxen (Naprosyn) 500 mg PO Q12H PRN PRN Reason: PAIN - MILD(1-4)/FEVER Last Admin: 03/08/19 19:37 Dose: 500 mg Documented by: Potassium Chloride (Klor-Con) 40 meq PO DAILY [facility] Promethazine HCl/Codeine (Phenergan W/Codeine) 5 ml PO QHS PRN PRN Reason: COUGH Throat Lozenges (Chloraseptic) 1 ml MT Q2HR PRN PRN Reason: SORE THROAT Last Admin: 03/08/19 15:53 Dose: 2 ml Documented by: MIRNA Plan - Labs Result Diagrams: 03/09/19 07:50 03/09/19 07:50
[2019-03-09] MEDS: MAGNESIUM OXIDE 400 MG TABLET PO SCH (11:45)
[2019-03-09] MEDS: AZITHROMYCIN 500 MG in 0.9 % SODIUM CHLORIDE 250ML 250 ML IVPB SCH (16:54)
[2019-03-09] MEDS: NAPROXEN 250 MG TABLET PO PRN (20:13)
[2019-03-10] MEDS: 0.9 % SODIUM CHLORIDE 1000ML 1,000 ML IV SCH (04:49)
[2019-03-10] MEDS ORDERED: PREDNISONE 20 MG TAB PO SCH (08:00)
[2019-03-10] MEDS ORDERED: CEFTRIAXONE 1GM/50ML BAG 1 GM/50 ML BAG IVPB SCH (08:15)
--- NOTE | 2019-03-10 09:07 | Discharge Summary ---
Providers Discharge Summary Date: 03/10/19 Date of admission: 03/07/19 19:51 Attending physician: DIMA DUBOIS Consults: Consult Orders 03/08/19 12:10 Consult - Case Management NOW Comment: Reason For Exam: No insurance Physical Exam - Vital Signs Vital Signs: Vital Signs - Last 24 Hrs Temp Pulse Resp BP Pulse Ox 03/10/19 08:00 97.8 F 78 16 137/70 95 03/09/19 20:00 98.5 F 72 18 135/76 96 03/09/19 17:00 98.9 F 84 16 136/78 96 03/09/19 13:00 97.5 F L 85 16 144/82 99 - General General Appearance: Alert, Oriented x3, Cooperative, Mild distress Limitations: No limitations - Head Head exam: Atraumatic, Normocephalic, Normal inspection - Eye Eye exam: Normal appearance, PERRL. negative: Conjunctival injection - ENT Throat exam: Normal inspection. negative: Tonsillar erythema, Tonsillar exudate - Neck Neck exam: Normal inspection, Full ROM. negative: Meningismus (The neck is very supple.), Tenderness - Respiratory Respiratory exam: Accessory muscle use, Rhonchi, Wheezes. negative: Chest wall tenderness, Rales, Respiratory distress, Stridor - Cardiovascular Cardiovascular Exam: Regular rate, Normal rhythm, Normal heart sounds Peripheral Pulses: 3+: Dorsalis Pedis (R), Dorsalis Pedis (L) - GI/Abdominal GI/Abdominal exam: Soft, Normal bowel sounds. negative: Tenderness - Extremities Extremities exam: Normal inspection, Full ROM, Normal capillary refill. negative: Pedal edema, Tenderness - Neurological Neurological exam: Alert, CN II-XII intact. negative: Abnormal gait, Altered, Motor sensory deficit - Psychiatric Psychiatric exam: Normal mood - Skin Skin exam: Dry, Intact Hospitalization - Hospitalization Admission Diagnosis: 1. Acute EMILIE Pneumonia. - Problem List/Discharge Diagnosis (1) Pneumonia Current Visit: Yes Status: Acute Discharge Diagnosis: Pneumonia type: due to unspecified organism Laterality: left Lung location: upper lobe of lung Qualified Code(s): J18.1 - Lobar pneumonia, unspecified organism Base Code: J18.9 - PNEUMONIA, UNSPECIFIED ORGANISM Comment: 03/10/19 -Improved -Intermittent fever, weakness, cough x 2 weeks -CXR: EMILIE infiltrate -Change IV Zithromax to PO, 500mg x 3 more days -D/C Rocephin, start Cefdinir 300mg PO BID x 16 more dose -Prednisone 40mg PO daily x 5 more days -Mucinex 600mg PO BID -Pt does not want inhaler d/t concern of tachycardia. Pt also does not have insurance. Will not order at this time (2) Electrolyte imbalance Current Visit: Yes Status: Acute Base Code: E87.8 - OTH DISORDERS OF ELECTROLYTE AND FLUID BALANCE, NEC Comment: 03/10/19 -Resolved (3) History of hypertension Current Visit: Yes Status: Acute Base Code: Z86.79 - PERSONAL HISTORY OF OTHER DISEASES OF THE CIRCULATORY SYSTEM Comment: 03/10/19 -Home meds: Lisinopril/Hctz and Metoprolol -SBP 110s-140s -Trial Losartan 50mg daily as Lisinopril has given chronic dry cough and Hctz likely attributed to hyponatremia -Continue home dose of Metoprolol on discharge (4) History of hepatitis C Current Visit: Yes Status: Acute Base Code: Z86.19 - PERSONAL HISTORY OF OTHER INFECTIOUS AND PARASITIC DISEASES Comment: 03/10/19 -Contracted from a blood transfusion in 1974 -Hx of Hep C treatment in 1998 -No GI d/t recent move to area and no insurance -Instructed to avoid acetaminophone and alcohol -Recommend that she follows with a GI specialist if/when obtain insurance (5) Blood glucose elevated Current Visit: Yes Status: Acute Base Code: R73.9 - HYPERGLYCEMIA, UNSPECIFIED Comment: 03/10/19 -A1C 6.5 -Discussed lifestyle modifications with pt and to f/u with PCP -Computer Aided Design Technician to see patient (6) Irregular heart rate Current Visit: Yes Status: Acute Base Code: I49.9 - CARDIAC ARRHYTHMIA, UNSPECIFIED Comment: 03/10/19 -No new episodes since 03/08/19 -Continue Metoprolol, start home dose upon discharge (7) Does not have health insurance Current Visit: Yes Status: Acute Base Code: Z59.8 - OTHER PROBLEMS RELATED TO HOUSING AND ECONOMIC CIRCUMSTANCES Comment: 03/10/19 -Buyer Agent saw pt -Financial sales representative gas service to see pt prior to discharge (8) Full code status Current Visit: Yes Status: Acute Base Code: Z78.9 - OTHER SPECIFIED HEALTH STATUS Comment: 03/10/19 -Full code (9) DVT prophylaxis Current Visit: Yes Status: Acute Base Code: Z29.9 - ENCOUNTER FOR PROPHYLACTIC MEASURES, UNSPECIFIED Comment: 03/10/19 -Low to moderate risk -Platelets 99 --> 73 --> 81, likely r/t chronic HCV -Lovenox contraindicated per UpToDate d/t low platelets -Nursing to encourage ambulation -SCDs ordered while in bed - Hospitalization Course Disposition: Home, Self-Care Hospital Course: Aleksandra Brantley is a 58 y.o. F who presented to the [facility] ED on 03/07/19 with c/o fevers, weakness, cough, nausea and mild diarrhea x 2 weeks that had worsened over last 2 days. Had also developed a mild headache and some confusion. Denied having back or neck pain or any urinary symptoms. Reported that she last saw her PCP in April 2018. Has hx of Hep C for which she was diagnosed in 1998. Stated that she got it from a blood transfusion during a in 1974. Did undergo treatment x 1 year back in 1998. Doesn't have a GI doctor as she moved to the area from [place] to live with her son fairly recently. Does not have any health insurance at this time. Doesn't know if she qualifies for Medicaid or not because she has a home, that is for sale, so was told she probably wouldn't qualify because of this asset. PMHx: Hep C, HTN, smoker PCP: Dr. Verma ED Course -Vitals: T 101, HR 130, BP 168/97, RR 20, SpO2 94% on RA -CXR: EMILIE Infiltrate -Head CT: No acute changes -Labs: WBC 8.1, platelets 99, Na 126, K+ 3.6, AG 18, Creat 0.8, Lactic 3.0, Ca 8.7, CRP 27, procalcitonin 1.6 -U/A: Trace Leuks, no Nitrites 03/08/19 1140 Vitals: T 97.6, HR 63, BP 99/59, RR 18, SpO2 99% on RA Pt was sitting up in bed in mild distress. Was c/o Chest pressure and some PRASAD. HR 150s to 170s on Telemetry. Had a Duoneb approximately 1 hour prior and had then gotten up to use the restroom when HR elevated and chest pressure started. Reported extreme coughing when up to the bathroom, after the Duoneb and then chest pressure started. Pt was administered IV Metoprolol 2.5mg x 2 doses and then given Metoprolol 25mg PO. 20 minutes later, EKG was ordered when HR did not decrease. When EKG machine was brought into room, pt converted to a NSR with HR in 80s. EKG = NSR. Outside of this episode, pt denied having any pain or fever however she has been receiving Naproxen ATC. RN did report that pt was diaphoretic this a.m. 03/09/19 1100 Pt reported that mucous is starting to break up and she is having increased coughing and wheezing. Doesn't want breathing treatments d/t worry that her heart rate will get fast again. Reported that her body is aching all over. 03/10/19 0830 Vitals: T 97.8, HR 78, BP 137/70, RR 16, SpO2 95% on RA Pt sitting up in bed. Alert and oriented x 4. Stated that she is feeling much better today. Is still having a cough but isn't feeling as fatigued and with body aches. No fevers or chills overnight. No irregular heart rate overnight. +BMs. Does report hx of chronic cough prior to this episode. Is on Lisinopril. Discussed switching to Losartan and f/u with PCP, pt agreeable. Procedures: Imaging and X-Rays 03/07/19 15:54 CHEST 2 VIEWS [RAD] Stat 03/07/19 16:35 HEAD WO CONTRAST [CT] Stat Cardiology Procedures 03/07/19 19:56 Supervisor Policy Change Clerks .Continuous 03/08/19 12:20 EKG NOW Abnormal Labs: Abnormal Lab Results 03/07/19 03/07/19 03/07/19 Range/Units 15:45 15:45 16:00 WBC (4.2-12.2) K/uL RBC (3.80-5.40) M/uL MCV (81-97) fl MCH (27-33) pg Plt Count 99 L (130-400) K/uL MPV 12.6 H (7.4-10.4) fl Neutrophils % (47-80) % Band Neutrophils % (0-5) % Lymphocytes % 9.6 L (16-45) % Lymphocytes 8.0 L (16-45) % Monocytes 10.0 H (0-9) % Sodium 126 L (136-145) mmol/L Potassium (3.4-4.5) mmol/L Chloride 89 L (98-107) mmol/L Carbon Dioxide 19.0 L (22-29) mmol/L Anion Gap 18.0 H (7-16) BUN 33 H (8-23) mg/dL Random Glucose 189 H (74-109) mg/dL Hemoglobin A1c (4.0-6.00) % Lactic Acid 3.0 H (0.5-2.2) mmol/L Calcium 8.7 L (8.8-10.2) mg/dL Total Bilirubin 1.40 H (0.2-1.0) mg/dL Direct Bilirubin 0.9 H (0-0.3) mg/dL AST 70 H (10.0-35.0) U/L ALT 34 H (<33) U/L C-Reactive Protein 27.72 H (<0.5) mg/dL Total Protein (6.6-8.7) g/dL Albumin 3.2 L (4.0-5.0) g/dL Albumin/Globulin Ratio (1.1-1.8) Urine Protein 100 mg/dl H (NEGATIVE) Urine Bilirubin Moderate H (NEGATIVE) Urine Urobilinogen 4.0 H (0.20 - 1.00) E.U./dL Ur Leukocyte Esterase Trace H (NEGATIVE) 03/08/19 03/08/19 03/09/19 Range/Units 06:00 06:00 07:50 WBC 4.1 L (4.2-12.2) K/uL RBC 3.64 L (3.80-5.40) M/uL MCV 98.1 H 97.9 H (81-97) fl MCH 33.2 H 33.1 H (27-33) pg Plt Count 73 L 81 L (130-400) K/uL MPV 12.3 H 12.9 H (7.4-10.4) fl Neutrophils % 82.0 H (47-80) % Band Neutrophils % 12.0 H 11.0 H (0-5) % Lymphocytes % 8.6 L (16-45) % Lymphocytes 8.0 L 5.0 L (16-45) % Monocytes (0-9) % Sodium 131 L (136-145) mmol/L Potassium 3.0 L (3.4-4.5) mmol/L Chloride (98-107) mmol/L Carbon Dioxide 21.0 L (22-29) mmol/L Anion Gap (7-16) BUN 34 H (8-23) mg/dL Random Glucose 173 H (74-109) mg/dL Hemoglobin A1c (4.0-6.00) % Lactic Acid (0.5-2.2) mmol/L Calcium 8.0 L (8.8-10.2) mg/dL Total Bilirubin 1.10 H (0.2-1.0) mg/dL Direct Bilirubin (0-0.3) mg/dL AST 77 H (10.0-35.0) U/L ALT 35 H (<33) U/L C-Reactive Protein (<0.5) mg/dL Total Protein 6.1 L (6.6-8.7) g/dL Albumin 2.4 L (4.0-5.0) g/dL Albumin/Globulin Ratio 0.6 L (1.1-1.8) Urine Protein (NEGATIVE) Urine Bilirubin (NEGATIVE) Urine Urobilinogen (0.20 - 1.00) E.U./dL Ur Leukocyte Esterase (NEGATIVE) 03/09/19 03/09/19 Range/Units 07:50 07:50 WBC (4.2-12.2) K/uL RBC (3.80-5.40) M/uL MCV (81-97) fl MCH (27-33) pg Plt Count (130-400) K/uL MPV (7.4-10.4) fl Neutrophils % (47-80) % Band Neutrophils % (0-5) % Lymphocytes % (16-45) % Lymphocytes (16-45) % Monocytes (0-9) % Sodium (136-145) mmol/L Potassium (3.4-4.5) mmol/L Chloride (98-107) mmol/L Carbon Dioxide 21.0 L (22-29) mmol/L Anion Gap (7-16) BUN 30 H (8-23) mg/dL Random Glucose 137 H (74-109) mg/dL Hemoglobin A1c 6.50 H (4.0-6.00) % Lactic Acid (0.5-2.2) mmol/L Calcium 8.3 L (8.8-10.2) mg/dL Total Bilirubin 1.30 H (0.2-1.0) mg/dL Direct Bilirubin (0-0.3) mg/dL AST 117 H (10.0-35.0) U/L ALT 48 H (<33) U/L C-Reactive Protein (<0.5) mg/dL Total Protein 6.0 L (6.6-8.7) g/dL Albumin 2.1 L (4.0-5.0) g/dL Albumin/Globulin Ratio 0.5 L (1.1-1.8) Urine Protein (NEGATIVE) Urine Bilirubin (NEGATIVE) Urine Urobilinogen (0.20 - 1.00) E.U./dL Ur Leukocyte Esterase (NEGATIVE) Condition at Discharge: (2) Stable Discharge Medications - Discharge Medications Prescriptions: Azithromycin 500 mg PO DAILY #3 tablet Losartan Potassium [Cozaar] 50 mg PO DAILY #30 tablet Cefdinir [Omnicef] 300 mg PO BID #16 cap Prednisone [Prednisone 20Mg] 40 mg PO DAILYWM 5 Days #10 tab Home Medications: Ambulatory Orders Naproxen [Naprosyn] 500 mg PO Q8HR 03/07/19 [Last Taken 03/07/19] Metoprolol Succinate [Toprol Xl] 50 mg PO DAILY 03/08/19 [Last Taken Unknown] Azithromycin 500 mg PO DAILY #3 tablet 03/10/19 [Last Taken Unknown] Calcium Carbonate [Tums] 500 mg PO BID tab.chew 03/10/19 [Last Taken Unknown] Cefdinir [Omnicef] 300 mg PO BID #16 cap 03/10/19 [Last Taken Unknown] Guaifenesin [Mucinex] 600 mg PO BID tabcr 03/10/19 [Last Taken Unknown] Losartan Potassium [Cozaar] 50 mg PO DAILY #30 tablet 03/10/19 [Last Taken Unknown] Magnesium Oxide [Mag Ox] 400 mg PO DAILY tab 03/10/19 [Last Taken Unknown] Prednisone [Prednisone 20Mg] 40 mg PO DAILYWM 5 Days #10 tab 03/10/19 [Last Taken Unknown] Discharge Plan - Discharge Instructions Activity at Discharge: Increase Activity as Tolerated Diet at Discharge: Diabetic Diet Additional Instructions: Take Mucinex 600mg twice a day at home Stop taking Lisinopril/Hctz, this is attributing to the chronic cough and low sodium levels in your blood Start taking Losartan 50mg daily Take Azithromycin 500mg daily for 3 days, start this tomorrow morning Take Cefdinir 300mg twice a day, start this in the afternoon Take Prednisone 40mg (2 pills) daily until gone, start this tomorrow morning Work on diet and exercise to reduce your blood glucose levels Follow up with your Primary Care Provider in 1 week Quality Measures - Quality Measures Quality Measures: Documentation of Current Medications in Medical Record, Screening for High Blood Pressure and F/U Documented - Current Medications Quality Measure: Measure #130: Documentation of Current Medications Documentation of Current Medications: <Current Medications Documented/Reviewed> [G8427] - Blood Pressure Screening Quality Measure: Screening for High Blood Pressure and Follow-Up Documented Does Patient Have Any of the Following: Active Dx of HTN Blood Pressure Classification: Hypertensive Reading Systolic Measurement: 168 Diastolic Measurement: 97 Screening for High Blood Pressure: Patient Exclusion, Hx of HTN [G9744] - Elder Abuse Suspicion Index EASI Reference Information: Enma LITTLE, Leonardo C, Demetri D, Angelica Oleary.Development and validation of a tool to assist physicians identification of elder abuse: The Elder Abuse Suspicion Index (EASI ). Journal of Elder Abuse and Neglect, 2008; 20 (3): 276-300.
[2019-03-10] MEDS: GUAIFENESIN 600 MG TABCR PO SCH (09:39)
[2019-03-10] MEDS: METOPROLOL TART 25 MG TABLET PO SCH (09:39)
[2019-03-10] MEDS: MAGNESIUM OXIDE 400 MG TABLET PO SCH (09:39)
[2019-03-10] MEDS: CALCIUM CARBONATE 500 MG TAB.CHEW PO SCH (09:39)
[2019-03-10] MEDS ORDERED: POTASSIUM CHLORIDE 20 MEQ TABLET PO SCH (10:00)
[2019-03-10] MEDS ORDERED: LISINOPRIL 20 MG TABLET PO SCH (10:00)
== END 2019-03-10 10:40 | disposition home or self-care (01) | DRG 195 ==
LOC: ER 15:25 → MEDSURG 19:51
PROVIDERS: ADMIT Internal Medicine; ATTEND Internal Medicine
DX: J18.1 Lobar pneumonia, unspecified organism (principal); E87.8 Other disorders of electrolyte and fluid balance, not elsewhere classified; R73.9 Hyperglycemia, unspecified; I49.9 Cardiac arrhythmia, unspecified; R42 Dizziness and giddiness; K76.9 Liver disease, unspecified; B19.20 Unspecified viral hepatitis C without hepatic coma; F17.210 Nicotine dependence, cigarettes, uncomplicated; Z86.79 Personal history of other diseases of the circulatory system; Z59.8 Other problems related to housing and economic circumstances
CPT/HCPCS: 70450; 71046; 80048; 80053; 80076; 81001; 82140; 83036; 83605; 83735; 84145; 85027; 85610; 85730; 86140; 93005; 94010; 94640; 96365; 96366; 96368; 99223; 99233; 99239; 99285; J0456; J0696; J2920; J7030; J7050; J7512